=== PATIENT | female | born 1940 | race African-American/Black ===

== ENCOUNTER 2017-08-15 07:15 | Day surgery (SDC) | payer BC, OTHER ==
[~2017-08-15] VITALS: Ht 157.5 cm; Wt 87.1 kg
--- NOTE | ~2017-08-15 | EGD ---
EGD REPORT [facility] [address] [place] [place] [address] NAME: WILIAN DUPONT : 36 STATUS : REG [facility]#: [id number] AGE: 77 ADM/REG DATE : 08/15/17 MR#: [id number] REPORT SERV DATE: 08/15/17 DICTATED BY: MARTHA MORAN DATE: 08/15/17 REPORT STATUS : Draft [facility]ED [facility]: [facility] DATE: 08/15/17 [facility] Center Patient Name: Wilian Dupont Date of : 1940 Attending MD: MARTHA MORAN, Procedure Date No Time: 08/15/2017 Procedure: Upper GI endoscopy Indications: Dysphagia Referring MD: Demarco Hadley Medicines: Propofol per Anesthesia Complications: No immediate complications. Estimated blood loss: None. Procedure: Pre-Anesthesia Assessment: - ASA Grade Assessment: III - A patient with severe systemic disease. After obtaining informed consent, the endoscope was passed under direct vision. Throughout the procedure, the patient's blood pressure, pulse, and oxygen saturations were monitored continuously. The GIF [id number] was introduced through the mouth, and advanced to the second part of duodenum. The upper GI endoscopy was accomplished with ease. The patient tolerated the procedure well. Findings: Grade I and grade II varices with no bleeding were found in the lower third of the esophagus 34 to 40 cm from the incisors. These had no stigmata of recent bleeding. The varices had red rylee signs. Four columns in total were able to be identified; the columns at 12 oclock and 9 oclock positions were Grade II and those at 3 oclock and 5 oclock positions were Grade I. Three bands were successfully placed with complete eradication from distal (12oclock) to proximal (9oclock), resulting in deflation of varices. It is of note that on the second band had a hematoma overlying it after the band was placed. There was no bleeding at the end of the procedure. Estimated blood loss: none. The Z-line was found 40 cm from the incisors. There is no endoscopic evidence of varices in the cardia. Moderate portal hypertensive gastropathy was found in the gastric body and in the gastric antrum. Biopsies were taken with a cold forceps for histology. Estimated blood loss: none. 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 Biopsies were taken with a cold forceps for histology. Estimated blood loss: none. Impression: - Non-bleeding grade I and grade II esophageal varices. EGD REPORT [address] [place]. [address] NAME: WILIAN DUPONT : 36 STATUS : REG [facility]#: [id number] AGE: 77 ADM/REG DATE : 08/15/17 MR#: [id number] REPORT SERV DATE: 08/15/17 DICTATED BY: MARTHA MORAN DATE: 08/15/17 REPORT STATUS : Draft TRANSCRIBED BY: [employer] [facility] DATE: 08/15/17 Completely eradicated. Banded. - Z-line 40 cm from the incisors. - Portal hypertensive gastropathy. Biopsied. - Mucosal variant in the duodenum. Biopsied. Recommendation: - Patient has a contact number available for emergencies. The signs and symptoms of potential delayed complications were discussed with the patient. Return to normal activities tomorrow. Written discharge instructions were provided to the patient. - Small sips of clear liquids today, full liquid diet tomorrow, soft diet the day after and regular diet afterwards, if tolerated. - Discharge patient to home (with escort). - Continue present medications. - No aspirin, ibuprofen, naproxen, or other non-steroidal anti-inflammatory drugs. - Give a beta marichuy with dosage titrated by the heart rate. - Use Prilosec (omeprazole) 40 mg PO daily. - Repeat the upper endoscopy in 3 months for retreatment. - Return to GI clinic to discuss pathology results with nurse practioner in 2-4 weeks. Procedure Code(s): --- Professional --- 60016, Esophagogastroduodenoscopy, flexible, transoral; with band ligation of esophageal/gastric varices 44542, Esophagogastroduodenoscopy, flexible, transoral; with biopsy, single or multiple Diagnosis Code(s): --- Professional --- I85.00, Esophageal varices without bleeding K76.6, Portal hypertension K31.89, Other diseases of stomach and duodenum K31.9, Disease of stomach and duodenum, unspecified R13.10, Dysphagia, unspecified CPT copyright 2013 [employer]. All rights reserved. The codes documented in this report are preliminary and upon panel machine tender review may be revised to meet current compliance requirements. MARTHA MORAN, 08/15/2017 10:17 AM This report has been signed electronically. EGD REPORT [facility] [address] [address] NAME: WLIIAN DUPONT : 36 STATUS : REG [facility] PAT#: [id number] AGE: 77 ADM/REG DATE : 08/15/17 MR#: [id number] REPORT SERV DATE: 08/15/17 DICTATED BY: MARTHA MORAN DATE: 08/15/17 REPORT STATUS : Draft TRANSCRIBED BY: [employer] [facility] DATE: 08/15/17 Number of Addenda: 0 Note Initiated On: 08/15/2017 9:35 AM Scope Withdrawal Time 0 hours 0 minutes 0 seconds [address] [facility] [place] [address]
[~2017-08-15 07:15] MED LIST: BUSPAR10 PO; DENIES HOME MEDS; NORV5 PO; SINGULAIR1 PO
== END 2017-08-15 23:59 | disposition home health service (06) ==
LOC: DMU 07:15
PROVIDERS: Internal Medicine Gastroenterology
PROC: 06L34CZ Occlusion of Esophageal Vein with Extraluminal Device, Percutaneous Endoscopic Approach (ICD-10-PCS; 2017-08-15)
PROC: 0DB68ZX Excision of Stomach, Via Natural or Artificial Opening Endoscopic, Diagnostic (ICD-10-PCS; principal; 2017-08-15 09:30)
PROC: 0DB98ZX Excision of Duodenum, Via Natural or Artificial Opening Endoscopic, Diagnostic (ICD-10-PCS; 2017-08-15 09:30)
DX: D13.2 Benign neoplasm of duodenum (principal); K29.80 Duodenitis without bleeding; K29.50 Unspecified chronic gastritis without bleeding; I85.00 Esophageal varices without bleeding; K76.6 Portal hypertension; I10 Essential (primary) hypertension; J44.9 Chronic obstructive pulmonary disease, unspecified; Z88.0 Allergy status to penicillin; Z79.899 Other long term (current) drug therapy; F17.210 Nicotine dependence, cigarettes, uncomplicated; Z90.49 Acquired absence of other specified parts of digestive tract; Z98.41 Cataract extraction status, right eye; Z98.42 Cataract extraction status, left eye; Z96.1 Presence of intraocular lens; Z98.890 Other specified postprocedural states
CPT/HCPCS: 88305; J2405